=== PATIENT | female | born 1955 | race Caucasian/White ===

== ENCOUNTER 2020-06-13 08:44 | Outpatient (CLI) | payer MEDICARE, OTHER, SELFPAY ==
--- NOTE | 2020-06-13 09:01 | US_ITS ---
WS: [id number] ADDITIONAL VIEWS RIGHT BREAST RIGHT breast ultrasound, limited HISTORY: ABNORMAL MAMMOGRAM COMPARISON: 12/24/2006 and 05/11/2020 Compression views right CC and MLO projection. True ML also submitted. There are 2 adjacent soft tissue nodules with the largest measuring 5 mm in the anterior medial RIGHT breast, inferior to the nipple line on the lateral projection. Margins are smooth. Otherwise fibrogl andular densities throughout the RIGHT breast are stable. RIGHT breast ultrasound, limited. Ultrasound is directed to the inferior medial RIGHT breast. There is a hypoechoic nodule at 3:00, 1 c m from the nipple which measures 4 x 3 x 2 mm. May correspond to the mammographic abnormality. Only a single hypoechoic nodule is identified. There are adjacent minimally prominent ducts. US/US breast RT limited* [id number] IMPRESSION: BI-RADS: 3-Probably Benign FOLLOW-UP: 6 Month Follow-up Recommend 6 month RIGHT mammogram follow-up and ultrasound evaluation.
== END 2020-06-13 08:45 | disposition home or self-care (01) ==
PROVIDERS: PCP Family Medicine; Visit Provider Family Medicine
DX: R92.8 Other abnormal and inconclusive findings on diagnostic imaging of breast (principal); N63.15 Unspecified lump in the right breast, overlapping quadrants
CPT/HCPCS: 76642; 77065

== ENCOUNTER 2020-07-30 17:38 | Inpatient (IN) | payer MEDICARE, OTHER, SELFPAY ==
[2020-07-30 20:36] VITALS: BP 145/72; PULSE 68; RESP 24; O2SAT 99
[2020-07-30 21:00] VITALS: BP 140/78; PULSE 56; RESP 17; O2SAT 97
[2020-07-30 21:03] VITALS: BMI 21.7
[2020-07-30 22:00] VITALS: BP 127/64; PULSE 59; RESP 17; O2SAT 99
[2020-07-30 23:00] VITALS: BP 129/68; PULSE 57; RESP 17; O2SAT 97
[2020-07-30] MEDS: enoxaparin 40 mg/0.4 mL Syringe SUBCUT (23:12)
[2020-07-30] MEDS: sodium chloride 0.9% 1,000 ML 75 ML IV (23:14)
[2020-07-31] VITALS (24 sets, daily range): BP systolic 117–166; BP diastolic 58–90; PULSE 52–78; RESP 13–29; TEMP 36.3–36.7; O2SAT 90–99
[2020-07-31 00:10] LABS: Thyroid Stimulating Hormone 0.13 uIU/mL (0.27-4.20)
[2020-07-31 06:54] LABS: Hematocrit 40.8 % (37.0-47.0); Hemoglobin 13.5 g/dL (11.5-15.3); Lymphocytes # 0.7 10^3/uL (0.8-4.8); Lymphocytes % 15.6 %; Mean Corpuscular HGB Conc 33.1 g/dL (30.0-36.0); Mean Corpuscular Hemoglobin 30.1 pg (28.0-34.0); Mean Corpuscular Volume 91.1 fL (81-99); Mean Platelet Volume 10.5 fL (7.4-10.4); Monocytes # 0.1 10^3/uL (0.2-0.9); Neutrophils # 3.47 10^3/uL (1.8-7.7); Neutrophils % 80.9 %; Nucleated Red Blood Cells % 0 %; Platelet Count 280 10^3/cmm (130-400); Red Blood Count 4.48 10^6/uL (4.1-5.3); White Blood Count 4.3 10^3/uL (4.0-10.0)
[2020-07-31 07:24] LABS: Alanine Aminotransferase 23 U/L (0-33); Albumin Level 3.6 g/dL (3.5-5.2); Alkaline Phosphatase 44 IU/L (35-105); Anion Gap 18.7 (5-19); Aspartate Amino Transferase 30 U/L (0-32); Blood Urea Nitrogen 18 mg/dL (8-23); Calcium 8.8 mg/dL (8.5-10.5); Carbon Dioxide 23 mmol/L (22-29); Chloride 97 mmol/L (98-107); Glucose 153 mg/dL (65-115); Magnesium 2.2 mg/dL (1.7-2.3); Osmolality Calculated 280 mOsm/kg (285-295); Phosphorus 2.6 mg/dL (2.5-4.5); Potassium 3.7 mmol/L (3.5-5.1); Sodium 135 mmol/L (136-145); Total Bilirubin 0.3 mg/dL (0.15-1.2); Total Protein 7.6 g/dL (6.6-8.7)
--- NOTE | 2020-07-31 07:27 | PC.ADMIT ---
[facility]0 Admission Note: The patient,Zuri Navarro,65 y/o, was given written information regarding hospital policies, unit procedures and contact persons. Patient's smoking status: . Vital Signs - 8 hr 07/31/20 00:00 07/31/20 01:00 07/31/20 02:00 Pulse Rate 55 L 60 64 Respiratory Rate 16 19 H 18 Blood Pressure 133/69 118/63 141/73 Pulse Oximetry 99 96 98 07/31/20 03:00 07/31/20 04:00 07/31/20 05:00 Pulse Rate 52 L 58 L 66 Respiratory Rate 13 21 H 29 H Blood Pressure 166/77 156/90 137/74 Pulse Oximetry 99 96 93 Patient recieved via EMS direct admit from [facility]. A&Ox4 with skin clear dry and intact. VS WNL oxygen per NC at 2L. Lungs clear and diminished in the bases. Will continue to monitor and assist as needed following CPOC
--- NOTE | 2020-07-31 08:54 | XRR_ITS ---
PROCEDURE INFORMATION: Exam: XR Chest, 1 View Exam date and time: 07/31/2020 10:59 AM Age: 65 years old Clinical indication: Patient HX: Shortness of breath. Covid; Additional info: SOB TECHNIQUE: Imaging protocol: XR of the chest Views: 1 view. COMPARISON: No relevant prior studies available. FINDINGS: Lungs: There is ground-glass opacification in the right upper, middle and lower lobes of the lung. No focal lung consolidation. Pleural space: Unremarkable. No pleural effusion. No pneumothorax. Heart/Mediastinum: Unremarkable. No cardiomegaly. Bones/joints: Unremarkable. XR/XR chest 1V portable [id number] IMPRESSION: There is right-sided lung disease which would be consistent with the given history of Covid 19 pneumonia.
[2020-07-31 09:38] LABS: D Dimer 2.05 ug/mIFEU (0-0.59)
[2020-07-31 09:56] LABS: Free T4 Free Thyroxine 1.39 ng/dL (0.82-1.77); T3 Free 1.5 PG/ML (2.0-4.4)
[2020-07-31] MEDS: benzonatate 100 mg Capsule PO (11:55)
--- NOTE | 2020-07-31 12:11 | CTR_ITS ---
PROCEDURE INFORMATION: Exam: CT Angiography Chest With Contrast Exam date and time: 07/31/2020 12:12 PM Age: 65 years old Clinical indication: Fever and shortness of breath; Patient HX: Weakness, fever, SOB, elev d-dimer, covid+; Additional info: Covid 19, R/O pe TECHNIQUE: Imaging protocol: Computed tomographic angiography of the chest with intravenous contrast. 3D rendering (Not supervised by radiologist): MIP and/or 3D reconstructed images were created by the technologist. Radiation optimization: All CT scans at this facility use at least one of these dose optimization techniques: automated exposure control; mA and/or kV adjustment per patient size (includes targeted exams where dose is matched to clinical indication); or iterative reconstruction. Contrast material: OMNI 350; Contrast volume: 95 ml; Contrast route: INTRAVENOUS (IV); COMPARISON: CR XR chest 1V portable [id number] 07/31/2020 11:07 AM RADIATION DOSE METRICS: Total DLP (mGy-cm): 578.34 FINDINGS: Pulmonary arteries: Normal. No pulmonary emboli. Aorta: Unremarkable. No aortic aneurysm. No aortic dissection. Lungs: There is ground-glass opacification in the bilateral upper, right middle and right lower lobe of the lung. There is peripheral predominance. No dominant lung mass. Pleural space: Unremarkable. No pneumothorax. No pleural effusion. Heart: Unremarkable. No cardiomegaly. No pericardial effusion. Lymph nodes: Unremarkable. No enlarged lymph nodes. Bones/joints: Unremarkable. No acute fracture. Soft tissues: Unremarkable. CT/CT angio chest PE protcl [id number] IMPRESSION: There is no evidence for a pulmonary embolus. There is bilateral lung disease, right worse than left. Findings would be consistent with Covid-19 pneumonia. Radiation Dose CTDIVOL = (mGy): DLP = 578.34 (mGy-cm)
[2020-07-31] MEDS: sodium chloride 0.9% 1,000 ML 75 ML IV (13:02)
--- NOTE | 2020-07-31 13:14 | PM.HP ---
Providers/Chief Complaint Admitting Physician: Philip Powell MD Primary Care Provider: Neeraj Chavira Chief Complaint: COVID 19 History of Present Illness Zuri Navarro is a 65 year old female with a past medical history of COPD, quit smoking more than 20 years ago, vitamin D deficiency, hypertension, hyperlipidemia, who presents to [facility] due to complaints of fatigue, malaise, weakness, fevers, shortness of breath with exertion. Patient states that her symptoms started about a week ago, with cough, fevers, fatigue, malaise, shortness of breath with exertion. She tested positive for COVID-19 on , however her symptoms worsen, had a poor appetite, felt dehydrated, diarrhea. She presented to the ER in [place], was transferred to [facility] due to concerns for COVID-19 and dehydration. Currently patient was examined in the viral ICU, she looks ill a bit dehydrated, her oxygen saturations do drop to 88 when she speaks with me, she does feel short of breath with exertion, but currently on room air versus 2 L nasal cannula, she states that she is doing better, still has a poor appetite, no diarrhea Review of Systems Const: Reports: fever(s), chills, body aches, change in appetite, fatigue and malaise Eyes: Denies: change in vision or blurry vision ENMT: Reports: nasal congestion Resp: Reports: dyspnea and non-productive cough; Denies: productive cough or wheezing GI: Reports: diarrhea; Denies: abdominal pain, nausea, vomiting, hematemesis, constipation, hematochezia or melena : Denies: flank pain, dysuria or urinary frequency Musc: Denies: neck pain or back pain Skin/Breast: Denies: rash Neuro: Denies: headache(s), dizziness or vertigo Psych: Denies: anxiety or depression Endo: Denies: polyuria or polydipsia Medications/Allergies Allergies Allergy/AdvReac Type Severity Reaction Status Date / Time No Known Drug Allergies Allergy Unknown Verified 07/30/20 23:11 PFSH Acute PFSH: Medical History (Updated 07/31/20 @ 13:19 by Philip Powell MD) COPD (chronic obstructive pulmonary disease) HLD (hyperlipidemia) HTN (hypertension) with goal to be determined Vitamin D deficiency Surgical History (Updated 07/31/20 @ 13:18 by Philip Powell MD) H/O tubal ligation Family History (Updated 07/31/20 @ 13:18 by Philip Powell MD) Other Cancer Diabetes Hypertension Social History (Updated 07/31/20 @ 13:18 by Philip Powell MD) Smoking and tobacco status: former smoker Alcohol intake: never Substance/Drug Use: never Vitals/I&O/Wt Last Vital Signs Temp 97.3 F L 07/31/20 12:00 Pulse 70 07/31/20 12:00 Resp 22 H 07/31/20 12:00 BP 144/77 07/31/20 12:00 Pulse Ox 93 07/31/20 12:00 07/30/20 07/31/20 07/31/20 22:59 06:59 14:59 Intake Total 100 / 100 300 / 400 1360 / 1360 Balance 100 / 100 300 / 400 1360 / 1360 Weight last 48 hrs Weight 68.492 kg Physical Exam Const: COMMON NORMALS: no acute distress and patient oriented x3 GENERAL APPEARANCE: cooperative and comfortable HENMT: COMMON NORMALS: normocephalic HEAD & SCALP: normocephalic Eye: COMMON NORMALS: Equal, round and reactive pupils present, EOMs intact bilaterally and no papilledema GENERAL EYE: appearance normal, both eyes and all related structures PUPIL: Yes Equal, round and reactive pupils present DIRECT OPHTHALMOSCOPY: Yes no papilledema Neck/C-Spine: COMMON NORMALS: full ROM, no lymphadenopathy, no JVD and Thyroid normal THYROID: Thyroid normal Lymph: LYMPHATIC: no lymphadenopathy noted Resp: COMMON NORMALS: normal respiratory effort, No retractions, No use of accessory muscles and clear to auscultation bilaterally AUSCULTATION: clear to auscultation bilaterally OTHER: Looks short of breath on exam Cardio: COMMON NORMALS: no JVD, regular rate, regular rhythm, S1 normal heart sound present, S2 normal heart sound present, No gallops present (Cardio), No clicks present (Cardio) and No murmurs present (Cardio) RATE: regular rate RHYTHM: regular rhythm HEART SOUNDS: S1 normal heart sound present and S2 normal heart sound present GI: COMMON NORMALS: Normal to inspection, nondistended, normoactive bowel sounds present, Soft to palpation, non-tender and No hepatosplenomegaly present PALPATION: Yes Soft to palpation and Yes No hepatosplenomegaly present Extremity: COMMON NORMALS: normal to inspection, full ROM and no pedal edema Neuro: COMMON NORMALS: patient oriented x3, CN's II-XII intact bilaterally, moves all extremities and no focal motor deficits Psych: COMMON NORMALS: mental status grossly normal, Normal thought process present and cooperative THOUGHT PROCESS: Normal thought process present Data : 07/31/20 05:00 07/31/20 05:00 Micro: Microbiology 07/30/20 23:00 Blood Culture - Preliminary Blood SPECIMEN COLLECTED 07/30/20 23:00 Blood Culture - Preliminary Blood SPECIMEN COLLECTED A&P Assessment and plan (1) Acute on chronic respiratory failure with hypoxia: -Secondary to COVID-19, viral pneumonitis -Currently requiring 2 L nasal cannula, feels short of breath -Risk factors include COPD, previous history of smoking Plan: -Continue oxygen therapy -Advair, Spiriva, albuterol -Normal saline at 75 cc an hour, hold for now -We will order CT angiogram of the chest -As she is short of breath, requiring 2 L nasal cannula we will start her on Decadron and remdesvir -No need for antibiotics at this point will review CT angiogram -Lovenox for DVT prophylaxis -Full code Status: Acute (2) COPD (chronic obstructive pulmonary disease): Status: Acute (3) HLD (hyperlipidemia): Status: Acute (4) HTN (hypertension) with goal to be determined: Status: Acute (5) Vitamin D deficiency: Status: Acute (6) COVID-19: Status: Acute (7) Viral pneumonitis: Status: Acute (8) Low TSH level: -We will check free T4, free T3 Status: Acute Attestations Medical Necessity Statement*: Patient course hospitalization, inpatient, greater than 2 midnights, for acute respiratory failure secondary to COVID-19 Coding Level of Care Code Acute Mine Administrator Supervisor for Chg Fwd Diagnoses Acute on chronic respiratory failure with hypoxia J96.21 COPD (chronic obstructive pulmonary disease) J44.9 HLD (hyperlipidemia) E78.5 HTN (hypertension) with goal to be determined I10 Vitamin D deficiency E55.9 COVID-19 U07.1 Viral pneumonitis J12.9 Low TSH level R79.89
[2020-07-31 14:24] LABS: NT Pro B Type Natriuretic Pept 133 pg/mL (0-125); Procalcitonin 0.15 ng/mL (0-0.5)
[2020-07-31 14:34] LABS: C Reactive Protein 230.6 mg/L (0.0-4.9); Lactate Dehydrogenase 303 U/L (135-214)
[2020-07-31 14:55] LABS: Ferritin 2456 ng/mL (15-150)
[2020-07-31] MEDS: pantoprazole DR 40 mg Tablet PO (15:02)
[2020-07-31] MEDS: dexamethasone 10 mg/mL INJ 6 MG IVP (15:02)
[2020-07-31] MEDS: iohexol 350 mg/mL 100 mL Btl IV (15:05)
[2020-07-31] MEDS: enoxaparin 40 mg/0.4 mL Syringe SUBCUT (17:40)
[2020-08-01] VITALS (28 sets, daily range): BP systolic 123–167; BP diastolic 44–107; PULSE 58–74; RESP 15–32; TEMP 36.1–37.1; O2SAT 89–99
[2020-08-01 05:35] LABS: Alanine Aminotransferase 38 U/L (0-33); Alkaline Phosphatase 43 IU/L (35-105); Anion Gap 15.8 (5-19); Aspartate Amino Transferase 36 U/L (0-32); Blood Urea Nitrogen 14 mg/dL (8-23); Carbon Dioxide 20 mmol/L (22-29); Chloride 105 mmol/L (98-107); Globulin 3.1 g/dL (1.3-4.6); Glomerular Filtration Rate 100.3 mL/min (90-130); Glucose 161 mg/dL (65-115); Magnesium 1.9 mg/dL (1.7-2.3); Osmolality Calculated 284 mOsm/kg (285-295); Phosphorus 2.2 mg/dL (2.5-4.5); Potassium 3.8 mmol/L (3.5-5.1); Sodium 137 mmol/L (136-145); Total Bilirubin 0.2 mg/dL (0.15-1.2); Total Protein 6.1 g/dL (6.6-8.7)
--- NOTE | 2020-08-01 06:00 | ECG_ITS ---
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 Measurements Intervals [place] Rate: 69 P: 43 SD: 155 QRS: 6 QRSD: 93 T: 17 QT: 403 QTc: 434 Interpretive Statements SINUS RHYTHM No previous ECG available for comparison Electronically Signed On 08-02-2020 14:58:48 CDT by Kathy Huffman M.D. [id number]
[2020-08-01] MEDS: benzonatate 100 mg Capsule PO ×2 (09:49→15:57)
[2020-08-01] MEDS: acetaminophen 325 mg Tablet 650 MG PO ×2 (09:49→15:56)
[2020-08-01] MEDS: pantoprazole DR 40 mg Tablet PO (09:50)
[2020-08-01] MEDS: sodium chloride 0.9% 1,000 ML 50 ML IV ×2 (10:30→22:10)
[2020-08-01] MEDS: dexamethasone 10 mg/mL INJ 6 MG IVP (12:09)
--- NOTE | 2020-08-01 12:43 | PC.RESP ---
Pulmonary Rehab information sent to patient.
--- NOTE | 2020-08-01 14:11 | PC.NURSE ---
PATIENT IS ALERT AND ORIENTATED BUT SORE ON MOVEMENT AND SOB WITH MINIMAL ACTIVITY BUT KEEPS HER SATS OVER 92 ON ROOM AIR. POOR APPETITE SHE HAS ONLY EATEN ABOUT 50 % OF HER TRAYS. SHE TOOK A BATH THIS AM , HER SHEETS WERE STRAIGHTENED BUT NOT CHANGED AT THE TIME THERE WAS NOT A FULL SET OF SHEETS AVAILABLE.
--- NOTE | 2020-08-01 14:32 | P.PN_ITS ---
Subjective Subjective: Interval history: In the last 24-hour her oxygen requirement is going down. She was pleasant in the morning and had denied any chest pain, shortness of breath, nausea, vomiting. Though she is complaining of some intermittent on and off nonproductive cough. She is tolerating the diet well. Vitals and labs have been reviewed. Medications: Reviewed: Yes Vitals/I&O/Wt Last Vital Signs Temp 97.4 F L 08/01/20 12:05 Pulse 68 08/01/20 13:00 Resp 26 H 08/01/20 13:00 BP 128/64 08/01/20 13:00 Pulse Ox 94 08/01/20 13:00 07/31/20 08/01/20 08/01/20 22:59 06:59 14:59 Intake Total 560 / 2177.5 300 / 2477.5 1492.5 / 1492.5 Balance 560 / 2177.5 300 / 2477.5 1492.5 / 1492.5 Weight last 48 hrs Weight 68.492 kg Physical Exam Const: COMMON NORMALS: patient oriented x3 HENMT: COMMON NORMALS: normocephalic, atraumatic, hearing grossly normal bilaterally and external ears normal HEAD & SCALP: normocephalic and atraumatic EXTERNAL EAR: Yes external ears normal Eye: COMMON NORMALS: no scleral icterus GENERAL EYE: appearance normal, both eyes and all related structures Chest: COMMONS NORMALS: normal inspection of the chest and normal palpation of entire chest wall CHEST: Yes Symmetrical chest wall rise Resp: COMMON NORMALS: normal respiratory effort, No retractions, No use of accessory muscles and clear to auscultation bilaterally EFFORT & INSPECTION: Yes symmetric chest movement AUSCULTATION: clear to auscultation bilaterally Cardio: COMMON NORMALS: regular rate, regular rhythm, S1 normal heart sound present, S2 normal heart sound present, No gallops present (Cardio), No murmurs present (Cardio), No rub (Cardio) and Peripheral pulses 2+ throughout RATE: regular rate RHYTHM: regular rhythm HEART SOUNDS: S1 normal heart sound present and S2 normal heart sound present PERIPHERAL PULSES: Peripheral pulses 2+ throughout GI: COMMON NORMALS: Normal to inspection, nondistended, normoactive bowel sounds present, Soft to palpation, non-tender, No hepatosplenomegaly present and no masses AUSCULTATION: Yes normoactive bowel sounds PALPATION: Yes Soft to palpation and Yes No hepatosplenomegaly present RECTAL EXAM: deferred Extremity: COMMON NORMALS: no clubbing, cyanosis or edema and no pedal edema Neuro: COMMON NORMALS: patient oriented x3 Data : 08/01/20 11:00 08/01/20 04:20 Micro: Microbiology 07/30/20 23:00 Blood Culture - Preliminary Blood NEGATIVE TO DATE 07/30/20 23:00 Blood Culture - Preliminary Blood NEGATIVE TO DATE 07/30/20 23:10 MRSA Culture - Final Nose A&P Assessment and plan (1) Acute on chronic respiratory failure with hypoxia: -Secondary to COVID-19, viral pneumonitis -Currently requiring 2 L nasal cannula, feels short of breath -Risk factors include COPD, previous history of smoking Plan: -Continue oxygen therapy -Advair, Spiriva, albuterol -Normal saline at 75 cc an hour, hold for now -We will order CT angiogram of the chest -As she is short of breath, requiring 2 L nasal cannula we will start her on Decadron and remdesvir -No need for antibiotics at this point will review CT angiogram -Lovenox for DVT prophylaxis -Full code Status: Acute (2) COPD (chronic obstructive pulmonary disease): Status: Acute (3) HLD (hyperlipidemia): Status: Acute (4) HTN (hypertension) with goal to be determined: Status: Acute (5) Vitamin D deficiency: Status: Acute (6) COVID-19: Status: Acute (7) Viral pneumonitis: Status: Acute (8) Low TSH level: -We will check free T4, free T3 Status: Acute Attestations Medical Necessity Statement*: Patient needs to stay in the hospital for management of COVID pneumonia. Coding Level of Care Code Acute Parts Salesperson for Chg Fwd Exam Comprehensive Diagnoses Acute on chronic respiratory failure with hypoxia J96.21 COPD (chronic obstructive pulmonary disease) J44.9 HLD (hyperlipidemia) E78.5 HTN (hypertension) with goal to be determined I10 Vitamin D deficiency E55.9 COVID-19 U07.1 Viral pneumonitis J12.9 Low TSH level R79.89
[2020-08-01 14:34] LABS: Basophils % 0.1 %; Hematocrit 33.4 % (37.0-47.0); Lymphocytes # 0.8 10^3/uL (0.8-4.8); Lymphocytes % 9.1 %; Mean Corpuscular HGB Conc 32.9 g/dL (30.0-36.0); Mean Corpuscular Hemoglobin 30.5 pg (28.0-34.0); Mean Corpuscular Volume 92.5 fL (81-99); Mean Platelet Volume 11.3 fL (7.4-10.4); Monocytes # 0.8 10^3/uL (0.2-0.9); Monocytes % 8.1 %; Neutrophils # 7.54 10^3/uL (1.8-7.7); Neutrophils % 81.9 %; Nucleated Red Blood Cells % 0 %; Platelet Count 250 10^3/cmm (130-400); Red Blood Count 3.61 10^6/uL (4.1-5.3); Red Cell Distribution Width 12.3 % (12.1-15.1); White Blood Count 9.2 10^3/uL (4.0-10.0)
[2020-08-01] MEDS: enoxaparin 40 mg/0.4 mL Syringe SUBCUT (15:23)
--- NOTE | 2020-08-01 18:45 | PC.NURSE ---
Received report on patient from Rashmi Arriaza RN. Assumed care at this time.
[2020-08-02] VITALS (15 sets, daily range): BP systolic 149–183; BP diastolic 68–89; PULSE 57–82; RESP 16–24; TEMP 36.3–37.2; O2SAT 86–95
[2020-08-02] MEDS: benzonatate 100 mg Capsule PO ×2 (04:36→10:38)
--- NOTE | 2020-08-02 06:00 | ECG_ITS ---
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 Measurements Intervals [place] Rate: 70 P: 48 ME: 145 QRS: 13 QRSD: 89 T: 17 QT: 398 QTc: 430 Interpretive Statements SINUS RHYTHM Compared to ECG 08/01/2020 09:35:40 No significant changes Electronically Signed On 08-02-2020 14:57:16 CDT by Kathy Huffman M.D. [id number]
[2020-08-02 06:24] LABS: Hemoglobin 11.4 g/dL (11.5-15.3); Lymphocytes # 0.8 10^3/uL (0.8-4.8); Lymphocytes % 10.5 %; Mean Corpuscular HGB Conc 33.5 g/dL (30.0-36.0); Mean Corpuscular Hemoglobin 29.9 pg (28.0-34.0); Mean Corpuscular Volume 89.2 fL (81-99); Mean Platelet Volume 11.3 fL (7.4-10.4); Monocytes # 0.5 10^3/uL (0.2-0.9); Monocytes % 6.4 %; Neutrophils % 82.4 %; Nucleated Red Blood Cells % 0 %; Platelet Count 282 10^3/cmm (130-400); Red Blood Count 3.81 10^6/uL (4.1-5.3); Red Cell Distribution Width 12.2 % (12.1-15.1); White Blood Count 7.2 10^3/uL (4.0-10.0)
[2020-08-02 06:42] LABS: Alanine Aminotransferase 34 U/L (0-33); Albumin Level 3.2 g/dL (3.5-5.2); Alkaline Phosphatase 46 IU/L (35-105); Anion Gap 15.8 (5-19); Aspartate Amino Transferase 20 U/L (0-32); Blood Urea Nitrogen 17 mg/dL (8-23); Carbon Dioxide 23 mmol/L (22-29); Chloride 105 mmol/L (98-107); Glomerular Filtration Rate 123.8 mL/min (90-130); Glucose 150 mg/dL (65-115); Osmolality Calculated 289 mOsm/kg (285-295); Phosphorus 2.5 mg/dL (2.5-4.5); Potassium 3.8 mmol/L (3.5-5.1); Sodium 140 mmol/L (136-145); Total Bilirubin 0.2 mg/dL (0.15-1.2); Total Protein 6.2 g/dL (6.6-8.7)
[2020-08-02] MEDS: pantoprazole DR 40 mg Tablet PO (08:19)
[2020-08-02] MEDS: lisinopril 20 mg Tablet PO (09:02)
--- NOTE | 2020-08-02 09:42 | PM.DCS ---
Discharge Providers Date of Admission: 07/30/20 17:38 Date of Discharge: August 02, 2020 Attending Provider at Admission: Philip Powell MD Attending Provider at Discharge: Philip Powell MD Primary Care Provider: Neeraj Chavira Diagnoses at Discharge Discharge Diagnosis (1) Acute on chronic respiratory failure with hypoxia: Status: Acute (2) COPD (chronic obstructive pulmonary disease): Status: Chronic (3) HLD (hyperlipidemia): Status: Chronic (4) HTN (hypertension) with goal to be determined: Status: Chronic (5) Vitamin D deficiency: Status: Acute (6) COVID-19: Status: Acute (7) Viral pneumonitis: Status: Acute (8) Low TSH level: Status: Acute Reason for Visit Reason for Visit: COVID 19 Hospital Course Discharge Summary: 65 year old female with a past medical history of COPD, quit smoking more than 20 years ago, vitamin D deficiency, hypertension, hyperlipidemia, came in with c/o fatigue, malaise, weakness, fevers, shortness of breath with exertion. Patient stated that her symptoms started about a week ago, with cough, fevers, fatigue, malaise, shortness of breath with exertion. She was managed for COVID PNA. She completed the course of Remdesivir as well course of decadron.She resonded well to the medical management. She was discharged in stable condition. Physical Exam Const: COMMON NORMALS: patient oriented x3 HENMT: COMMON NORMALS: normocephalic, atraumatic, hearing grossly normal bilaterally and external ears normal HEAD & SCALP: normocephalic and atraumatic EXTERNAL EAR: Yes external ears normal Eye: COMMON NORMALS: no scleral icterus GENERAL EYE: appearance normal, both eyes and all related structures Chest: COMMONS NORMALS: normal inspection of the chest and normal palpation of entire chest wall CHEST: Yes Symmetrical chest wall rise Resp: COMMON NORMALS: normal respiratory effort, No retractions, No use of accessory muscles and clear to auscultation bilaterally EFFORT & INSPECTION: Yes symmetric chest movement AUSCULTATION: clear to auscultation bilaterally Cardio: COMMON NORMALS: regular rate, regular rhythm, S1 normal heart sound present, S2 normal heart sound present, No gallops present (Cardio), No murmurs present (Cardio), No rub (Cardio) and Peripheral pulses 2+ throughout RATE: regular rate RHYTHM: regular rhythm HEART SOUNDS: S1 normal heart sound present and S2 normal heart sound present PERIPHERAL PULSES: Peripheral pulses 2+ throughout GI: COMMON NORMALS: Normal to inspection, nondistended, normoactive bowel sounds present, Soft to palpation, non-tender, No hepatosplenomegaly present and no masses AUSCULTATION: Yes normoactive bowel sounds PALPATION: Yes Soft to palpation and Yes No hepatosplenomegaly present RECTAL EXAM: deferred Extremity: COMMON NORMALS: no clubbing, cyanosis or edema and no pedal edema Neuro: COMMON NORMALS: patient oriented x3 Discharge Data Data Completed and Pending: Completed Studies During Hospitalization Category Date Time Status CT angio chest PE protcl [id number] Stat Cat Scan 07/31/20 12:11 Completed XR chest 1V annabel ble [id number] Routine Exams 07/31/20 08:54 Completed Pending at discharge Category Date Time Status Blood Culture Rou zoltan Lab 07/30/20 23:00 Results Viral Respiratory ,Rapid Cultur Stat Lab 07/31/20 21:15 Received Labs from last 24 hours 08/02/20 08/02/20 08/01/20 04:20 04:20 11:00 WBC 7.2 9.2 RBC 3.81 L 3.61 L Hgb 11.4 L 11.0 L Hct 34.0 L 33.4 L MCV 89.2 92.5 MCH 29.9 30.5 MCHC 33.5 32.9 RDW 12.2 12.3 Plt Count 282 250 MPV 11.3 H 11.3 H Neut % (Auto) 82.4 81.9 Lymph % (Auto) 10.5 9.1 [place] % (Auto) 6.4 8.1 Eos % (Auto) 0.0 0.0 Baso % (Auto) 0.0 0.1 Neut # (Auto) 5.90 7.54 Lymph # (Auto) 0.8 0.8 [place] # (Auto) 0.5 0.8 Eos # (Auto) 0.0 0.0 Baso # (Auto) 0.0 0.0 Nucleated RBC % (a uto) 0 0 Nucleated RBCs # 0.0 0.0 Sodium 140 Potassium 3.8 Chloride 105 Carbon Dioxide 23 Anion Gap 15.8 BUN 17 Creatinine 0.5 GFR Calculation 123.8 Glucose 150 H Calculated Osmolal ity 289 Calcium 8.0 L Phosphorus 2.5 Magnesium 2.0 Total Bilirubin 0.2 AST 20 ALT 34 H Alkaline Phosphata se 46 Total Protein 6.2 L Albumin 3.2 L Globulin 3.0 Vitals: Last Vital Signs Temp 97.4 F L 08/02/20 08:00 Pulse 71 08/02/20 09:32 Resp 19 H 08/02/20 09:00 BP 149/79 08/02/20 09:00 Pulse Ox 93 08/02/20 09:32 Discharge Plan Discharge Patient Disposition: Home Condition: Stable Prescriptions: New benzonatate 100 mg Capsule 100 mg PO TID PRN (Reason: Cough) Qty: 30 RF: 0 Ventolin HFA 90 mcg/actuation Hfa Aerosol Inhaler 2 puff inhalation Q4H PRN (Reason: Shortness Of Breath) 30 Days RF: 0 lisinopril 20 mg Tablet 20 mg PO DAILY 30 Days RF: 0 pantoprazole 40 mg Tablet,Delayed Release (Dr/Ec) 40 mg PO DAILY 30 Days RF: 0 Medrol (Satinder) 4 mg tablets,dose pack See Rx Instructions .ROUTE .COMPLEX Qty: 21 RF: 0 Advair Diskus 100-50 mcg/dose Blister With Device 1 puff inhalation BID 30 Days RF: 0 cholecalciferol (vitamin D3) 25 mcg (1,000 unit) capsule 25 mcg PO DAILY Qty: 30 RF: 0 benzonatate 100 mg capsule 100 mg PO BID PRN (Reason: cough) Qty: 30 RF: 0 Discharge Orders: Discharge Order (Routine); Ordered 08/02/20 Ordered By: Gerardo Osorio Other Ambulatory Orders: DME: Oxygen (Order) Location: None Selected Ordered By: Gerardo Osorio [facility] [facility] Discharge Diet: Low Salt Discharge Activity: Resume usual activity Discharge Date/Time: 08/02/20 13:34 Discharge Attestations Time Spent in Discharge Care*: greater than 30 min Specific Discharge Activities: Specific discharge activities: educating patient, educating and/or supporting family/caregiver, discussing with transplant case manager/social workers/dc planners, documenting/other paperwork and evaluating patient/reviewing data Status at Discharge: Cognitive status at discharge: cognitively intact, Functional status at discharge: independent ambulation Quality Metrics Clinical Quality Measures During this hospital stay, did patient experience: None Coding Level of Care Code Acute Feeder Associate for Derik Fwrolando Diagnoses Acute on chronic respiratory failure with hypoxia J96.21 COPD (chronic obstructive pulmonary disease) J44.9 HLD (hyperlipidemia) E78.5 HTN (hypertension) with goal to be determined I10 Vitamin D deficiency E55.9 COVID-19 U07.1 Viral pneumonitis J12.9 Low TSH level R79.89
--- NOTE | 2020-08-02 11:45 | PC.SOCIAL ---
IMM Explained page 2 of IMM to patient by phone as she is in the VICU for being COVID positive. She verbalizes understanding. Initialed, dated, and timed and copy provided to patient via nurse. Original sent to Medical Records to be scanned into patient's EHR.
--- NOTE | 2020-08-04 12:22 | PC.SOCIAL ---
Called patient post discharge to see how she is feeling. Patient indicates she is very weak and dizzy when ambulating to bathroom. She is not getting up much other than that due to weakness. She has called Dr Chavira office to request a walker with a seat. This would help her continue to ambulate and gain strength but allow for a rest in between if needed. We discussed this seems to be needed for her safety and will allow her to gain strength as she recovers. She indicates feeling at a stand still on recovery. She does not have an appetite. We discussed drinking Ensure a few times a day to help get nutrients needed as she is recovering. She has been afebrile. She does continue to have cough. We discussed rinsing her mouth after inhaler use. She verbalized understanding and will start doing this. We discussed doing deep breathing exercises throughout the day where she breathes in through nose and out slowly through mouth. We discussed this keep her lungs active and helps expand airways to prevent further weakness and shortness of breath and prevent further respiratory infections. Patient agreed to do these exercises. She is hoping to show improvement soon. We discussed handwashing and social distancing. She does have someone that can last picker groceries etc for her if needed while she is still symptomatic and needs to be quarantined. She did not have a visit scheduled with Dr Chavira yet and we discussed it would be best if she get a virtual visit this week or early next week. She verbalized understanding. She is interested in the Plasma donation information therefore this nurse will mail it out to her. This nurse called Dr Chavira office and he does have a message request for the walker with seat. Scheduling Specialist mentioned he would address after seeing patients today and will probably be ordered tomorrow. Patient was told if any concerns they will call her. Patient felt her care was good here and had no concerns.
== END 2020-08-02 13:34 | disposition home or self-care (01) | DRG 177 ==
PROVIDERS: Admitting Provider Family Medicine; PCP Family Medicine; Visit Provider Family Medicine
DX: U07.1 COVID-19 (principal); J12.89 Other viral pneumonia; J96.21 Acute and chronic respiratory failure with hypoxia; J44.0 Chronic obstructive pulmonary disease with (acute) lower respiratory infection; Z87.891 Personal history of nicotine dependence; E55.9 Vitamin D deficiency, unspecified; I10 Essential (primary) hypertension; E78.5 Hyperlipidemia, unspecified; E86.0 Dehydration; R79.89 Other specified abnormal findings of blood chemistry
CPT/HCPCS: 12345; 36415; 71045; 71275; 80053; 82728; 83615; 83735; 83880; 84100; 84145; 84439; 84443; 84481; 85025; 85378; 86140; 87040; 87641; 93005; 96372; 96375; J1100; J1650; J7030; Q9967

== ENCOUNTER 2020-12-21 10:13 | Outpatient (CLI) | payer MEDICARE, OTHER, SELFPAY ==
--- NOTE | 2020-12-21 10:23 | MM_ITS ---
WS: [id number] DIAGNOSTIC BILATERAL DIGITAL MAMMOGRAM WITH CAD RIGHT breast ultrasound, limited HISTORY: 6 MO F/U ABNORMAL MAMMOGRAM RT NODULES COMPARISON: 06/13/2020, 05/11/2020 and 12/24/2006 TECHNIQUE: Bilateral craniocaudad, mediolateral oblique, and mediolateral views are submitted. Spot c ompression RIGHT MLO and cc. Computer aided detection utilized. Breast composition: The breasts are heterogeneously dense, which may obscure small masses. No persist ent nodules are identified. No architectural distortion. Dense fibroglandular pattern is similar to p rior studies. RIGHT breast ultrasound, limited. RIGHT breast ultrasound is directed to the 3:00 axis, 1 cm from the nipple as indicated on a prior ul trasound from 06/13/2020. Again noted is a hypoechoic mass at 3:00, 1 cm from the nipple measuring 3 x 3 x 2 mm. Mass has not increased in size but appears slightly taller than wide. At this time I belie ve we should proceed with biopsy. MM/[place] [id number] IMPRESSION: BI-RADS: 4-Suspicious Finding-Biopsy Should Be Considered FOLLOW UP: Biopsy Recommended Ultrasound-guided biopsy recommended of the RIGHT breast mass at 3:00. Although this mass has not significantly increased in size it appears slightly taller t [place] wide today. Instead of continuing short-term follow-up biopsy is recommende d to exclude malignancy.
== END 2020-12-21 10:14 | disposition home or self-care (01) ==
LOC: RADSHAW 10:16
PROVIDERS: PCP Family Medicine; Visit Provider Family Medicine
DX: R92.8 Other abnormal and inconclusive findings on diagnostic imaging of breast (principal); N63.15 Unspecified lump in the right breast, overlapping quadrants
CPT/HCPCS: 76642; 77065

== ENCOUNTER 2021-01-16 12:32 | Outpatient (CLI) | payer MEDICARE, OTHER, SELFPAY ==
--- NOTE | 2021-01-16 13:00 | US_ITS ---
WS: [id number] ULTRASOUND-GUIDED RIGHT BREAST BIOPSY HISTORY: R92.8 - Other abnormal and inconclusive findings on diagnostic imaging of breast COMPARISON: 12/21/2020 and 06/13/2020 Procedure, risks and complications are explained to the patient. Medications are reviewed. Consent is obtained. The mass in the RIGHT breast is localized with ultrasound. Mass localized to 3:00, 1 cm from the nipp le. Skin is cleansed with ChloraPrep and anesthetized with 1% buffered lidocaine. Small dermatome is made. Under sterile conditions mass is biopsied with a 14-gauge Achieve needle. Multiple core biopsie s are performed. Material placed in formalin and sent to pathology for review. No complications encou ntered. Breast tissue marker (Bard ultrasound enhanced ribbon): Single. Patient left the radiology suite with no complications. Patient is instructed to return to [facility]. US/[place] [id number] IMPRESSION: 1. Uncomplicated core needle biopsy RIGHT breast mass at 3:00. PATHOLOGY: Benign fibrous cystic changes with sclerosing adenosis. No malignanc y. RECOMMENDATION: Return to annual screening mammography.
== END 2021-01-16 12:33 | disposition home or self-care (01) ==
LOC: RAD 12:35
PROVIDERS: PCP Family Medicine; Visit Provider Family Medicine
DX: N63.15 Unspecified lump in the right breast, overlapping quadrants (principal); R92.8 Other abnormal and inconclusive findings on diagnostic imaging of breast; N60.21 Fibroadenosis of right breast
CPT/HCPCS: 19083; 88305

== ENCOUNTER 2022-01-29 09:01 | Outpatient (CLI) | payer MEDICARE, OTHER, SELFPAY ==
--- NOTE | 2022-01-29 09:15 | MM_ITS ---
WS: [id number] Bilateral screening 3D tomosynthesis digital mammogram, 01/29/2022 Clinical Data: Z12.39 - Encounter for other screening for malignant neoplasm of breast Comparison: 12/21/2020, 06/13/2020, 05/11/2020, 12/24/2006. Findings: The breast parenchymal pattern shows heterogeneous density No spiculated masses or clustered calcific ations are seen. There are no secondary signs of carcinoma. MM/[place] [id number] Impression: 1. Negative bilateral mammogram unchanged. 2. Recommend annual screening mammograms. BIRADS: 1-Negative FOLLOW UP: 1 Year Follow-up The CAD material checker was used.
== END 2022-01-29 09:02 | disposition home or self-care (01) ==
PROVIDERS: PCP Family Medicine; Visit Provider Surgery
DX: Z12.31 Encounter for screening mammogram for malignant neoplasm of breast (principal)
CPT/HCPCS: 77063; 77067

== ENCOUNTER → 2022-04-19 10:48 | Outpatient (BNVA) | payer MEDICARE, OTHER, SELFPAY | PROVIDERS: PCP Family Medicine; Referring Provider Family Medicine; Visit Provider Anesthesiology Pain Medicine | DX: G89.29 Other chronic pain (principal); M47.816 Spondylosis without myelopathy or radiculopathy, lumbar region; M79.604 Pain in right leg; M79.605 Pain in left leg; Z87.891 Personal history of nicotine dependence | CPT/HCPCS: 99204 ==

== ENCOUNTER 2022-05-16 10:25 | Outpatient (RCR) | payer MEDICARE, OTHER, SELFPAY | END 2022-05-17 23:59 | disposition home or self-care (01) | LOC: SPT 10:25 | PROVIDERS: PCP Family Medicine; Referring Provider Anesthesiology Pain Medicine; Visit Provider Anesthesiology Pain Medicine | DX: G89.29 Other chronic pain (principal); M54.50 Low back pain, unspecified | CPT/HCPCS: 97161 ==

== ENCOUNTER 2022-05-18 06:00 | Outpatient (RCR) | payer MEDICARE, OTHER, SELFPAY | END 2022-06-17 23:59 | disposition home or self-care (01) | LOC: SPT 06:00 | PROVIDERS: PCP Family Medicine; Referring Provider Anesthesiology Pain Medicine; Visit Provider Anesthesiology Pain Medicine | DX: M54.50 Low back pain, unspecified (principal); G89.29 Other chronic pain | CPT/HCPCS: 97032; 97110 ==

== ENCOUNTER → 2022-06-14 10:18 | Outpatient (BNVA) | payer MEDICARE, OTHER, SELFPAY | PROVIDERS: PCP Family Medicine; Visit Provider Anesthesiology Pain Medicine | DX: Z87.891 Personal history of nicotine dependence (principal); M47.816 Spondylosis without myelopathy or radiculopathy, lumbar region | CPT/HCPCS: 99214 ==

== ENCOUNTER → 2022-07-09 14:05 | Outpatient (BNVA) | payer MEDICARE, OTHER, SELFPAY | PROVIDERS: PCP Family Medicine; Visit Provider Anesthesiology Pain Medicine | DX: Z87.891 Personal history of nicotine dependence (principal); M47.816 Spondylosis without myelopathy or radiculopathy, lumbar region | CPT/HCPCS: 64493; 64494; 64495; J3490 ==

== ENCOUNTER → 2022-07-24 13:23 | Outpatient (BNVA) | payer MEDICARE, OTHER, SELFPAY | PROVIDERS: PCP Family Medicine; Visit Provider Anesthesiology Pain Medicine | DX: M47.816 Spondylosis without myelopathy or radiculopathy, lumbar region (principal); Z87.891 Personal history of nicotine dependence | CPT/HCPCS: 64493; 64494; 64495; J3490 ==

== ENCOUNTER → 2022-08-08 09:53 | Outpatient (BNVA) | payer MEDICARE, OTHER, SELFPAY | PROVIDERS: PCP Family Medicine; Visit Provider Anesthesiology Pain Medicine | DX: M47.816 Spondylosis without myelopathy or radiculopathy, lumbar region (principal); M79.604 Pain in right leg; M79.605 Pain in left leg; Z87.891 Personal history of nicotine dependence | CPT/HCPCS: 99214 ==

== ENCOUNTER 2023-02-07 07:57 | Outpatient (CLI) | payer MEDICARE, OTHER, SELFPAY ==
--- NOTE | 2023-02-07 08:24 | MM_ITS ---
WS: [id number] BILATERAL SCREENING DIGITAL TOMOSYNTHESIS MAMMOGRAM WITH CAD HISTORY: SCREEN COMPARISON: 01/29/2022, 12/21/2020, 05/11/2020 Bilateral CC and MLO views with tomosynthesis and synthetic mammography submitted. Computer aided det ection analyzed. Breast composition: The breasts are heterogeneously dense, which may obscure small masses. No suspici ous masses, microcalcifications or architectural distortion. Biopsy clip anterior RIGHT breast. MM/[place] [id number] IMPRESSION: BI-RADS: 2-Benign FOLLOW UP: 1 Year Follow-up
== END 2023-02-07 07:58 | disposition home or self-care (01) ==
PROVIDERS: PCP Family Medicine; Visit Provider Family Medicine
DX: Z12.31 Encounter for screening mammogram for malignant neoplasm of breast (principal)
CPT/HCPCS: 77063; 77067

== ENCOUNTER → 2023-07-04 09:55 | Outpatient (BNVA) | payer MEDICARE, OTHER, SELFPAY | PROVIDERS: PCP Family Medicine; Referring Provider Registered Nurse; Visit Provider Orthopaedic Surgery | DX: M48.02 Spinal stenosis, cervical region (principal) | CPT/HCPCS: 72050; 99204 ==

== ENCOUNTER → 2023-07-23 08:38 | Outpatient (BNVA) | payer MEDICARE, OTHER, SELFPAY | PROVIDERS: PCP Family Medicine; Visit Provider Anesthesiology Pain Medicine | DX: M47.816 Spondylosis without myelopathy or radiculopathy, lumbar region | CPT/HCPCS: 99214 ==

== ENCOUNTER → 2023-08-15 13:58 | Outpatient (BNVA) | payer MEDICARE, OTHER, SELFPAY | PROVIDERS: PCP Family Medicine; Visit Provider Anesthesiology Pain Medicine | DX: M47.816 Spondylosis without myelopathy or radiculopathy, lumbar region (principal) | CPT/HCPCS: 64493; 64494; 64495; J3490 ==

== ENCOUNTER → 2023-08-27 08:51 | Outpatient (BNVA) | payer MEDICARE, OTHER, SELFPAY | PROVIDERS: PCP Family Medicine; Visit Provider Anesthesiology Pain Medicine | DX: M47.816 Spondylosis without myelopathy or radiculopathy, lumbar region | CPT/HCPCS: 99214 ==

== ENCOUNTER → 2023-09-10 13:29 | Outpatient (BNVA) | payer MEDICARE, OTHER, SELFPAY | PROVIDERS: PCP Family Medicine; Visit Provider Anesthesiology Pain Medicine | DX: M47.816 Spondylosis without myelopathy or radiculopathy, lumbar region (principal); M54.16 Radiculopathy, lumbar region | CPT/HCPCS: 64635; 64636; J1030 ==

== ENCOUNTER → 2023-09-24 10:45 | Outpatient (BNVA) | payer MEDICARE, OTHER, SELFPAY | PROVIDERS: PCP Family Medicine; Visit Provider Anesthesiology Pain Medicine | DX: M47.816 Spondylosis without myelopathy or radiculopathy, lumbar region | CPT/HCPCS: 99214 ==

== ENCOUNTER → 2023-10-16 13:53 | Outpatient (BNVA) | payer MEDICARE, OTHER, SELFPAY | PROVIDERS: PCP Family Medicine; Visit Provider Anesthesiology Pain Medicine | DX: M47.816 Spondylosis without myelopathy or radiculopathy, lumbar region (principal) | CPT/HCPCS: 64493; 64494; 64495; J3490 ==

== ENCOUNTER → 2023-10-30 13:26 | Outpatient (BNVA) | payer MEDICARE, OTHER, SELFPAY | PROVIDERS: PCP Family Medicine; Visit Provider Anesthesiology Pain Medicine | DX: M47.816 Spondylosis without myelopathy or radiculopathy, lumbar region (principal) | CPT/HCPCS: 64493; 64494; 64495; J3490 ==

== ENCOUNTER → 2023-11-19 09:58 | Outpatient (BNVA) | payer MEDICARE, OTHER, SELFPAY | PROVIDERS: PCP Family Medicine; Visit Provider Anesthesiology Pain Medicine | DX: M47.816 Spondylosis without myelopathy or radiculopathy, lumbar region | CPT/HCPCS: 99214 ==

== ENCOUNTER → 2023-11-28 14:16 | Outpatient (BNVA) | payer MEDICARE, OTHER, SELFPAY | PROVIDERS: PCP Family Medicine; Visit Provider Anesthesiology Pain Medicine | DX: M47.816 Spondylosis without myelopathy or radiculopathy, lumbar region (principal) | CPT/HCPCS: 64635; 64636; J1030 ==

== ENCOUNTER → 2023-12-12 08:43 | Outpatient (BNVA) | payer MEDICARE, OTHER, SELFPAY | PROVIDERS: PCP Family Medicine; Visit Provider Anesthesiology Pain Medicine | DX: M47.816 Spondylosis without myelopathy or radiculopathy, lumbar region | CPT/HCPCS: 99214 ==

== ENCOUNTER → 2023-12-24 08:59 | Outpatient (BNVA) | payer MEDICARE, OTHER, SELFPAY | PROVIDERS: PCP Family Medicine; Visit Provider Anesthesiology Pain Medicine | DX: M79.18 Myalgia, other site (principal); M47.816 Spondylosis without myelopathy or radiculopathy, lumbar region | CPT/HCPCS: 20553; 99214; J1030; J3490 ==

== ENCOUNTER 2024-01-31 06:00 | Outpatient (RCR) | payer MEDICARE, SELFPAY | END 2024-02-16 23:59 | disposition home or self-care (01) | LOC: WPT 06:00 | PROVIDERS: PCP Family Medicine; Visit Provider Anesthesiology Pain Medicine | DX: M47.896 Other spondylosis, lumbar region (principal) | CPT/HCPCS: 97110; 97112; 97161; 97530 ==

== ENCOUNTER 2024-02-17 06:00 | Outpatient (RCR) | payer MEDICARE, OTHER, SELFPAY | END 2024-03-17 23:59 | disposition home or self-care (01) | LOC: WPT 06:00 | PROVIDERS: PCP Family Medicine; Visit Provider Anesthesiology Pain Medicine | DX: M47.816 Spondylosis without myelopathy or radiculopathy, lumbar region (principal) | CPT/HCPCS: 97110 ==

== ENCOUNTER → 2024-02-18 09:26 | Outpatient (BNVA) | payer MEDICARE, OTHER, SELFPAY | PROVIDERS: PCP Family Medicine; Visit Provider Anesthesiology Pain Medicine | DX: M47.816 Spondylosis without myelopathy or radiculopathy, lumbar region (principal); G89.29 Other chronic pain | CPT/HCPCS: 72110; 99214 ==

== ENCOUNTER → 2024-02-27 09:51 | Outpatient (BNVA) | payer MEDICARE, OTHER, SELFPAY | PROVIDERS: PCP Family Medicine; Visit Provider Anesthesiology Pain Medicine | DX: M79.18 Myalgia, other site (principal); M47.816 Spondylosis without myelopathy or radiculopathy, lumbar region; M16.0 Bilateral primary osteoarthritis of hip; W57.XXXA Bitten or stung by nonvenomous insect and other nonvenomous arthropods, initial encounter; M25.551 Pain in right hip; M25.552 Pain in left hip; M54.2 Cervicalgia | CPT/HCPCS: 20553; 73521; 99214 ==

== ENCOUNTER → 2024-03-31 08:49 | Outpatient (BNVA) | payer MEDICARE, OTHER, SELFPAY | PROVIDERS: PCP Family Medicine; Visit Provider Anesthesiology Pain Medicine | DX: M54.2 Cervicalgia; M47.816 Spondylosis without myelopathy or radiculopathy, lumbar region; M16.0 Bilateral primary osteoarthritis of hip | CPT/HCPCS: 99214 ==

== ENCOUNTER → 2024-04-09 13:56 | Outpatient (BNVA) | payer MEDICARE, OTHER, SELFPAY | PROVIDERS: PCP Family Medicine; Visit Provider Anesthesiology Pain Medicine | DX: M16.11 Unilateral primary osteoarthritis, right hip (principal) | CPT/HCPCS: 20610; J1010; J3490 ==

== ENCOUNTER → 2024-04-23 13:06 | Outpatient (BNVA) | payer MEDICARE, OTHER, SELFPAY | PROVIDERS: PCP Family Medicine; Visit Provider Anesthesiology Pain Medicine | DX: M16.12 Unilateral primary osteoarthritis, left hip (principal) | CPT/HCPCS: 20610; 77002; J1010; J3490 ==

== ENCOUNTER → 2024-05-06 08:43 | Outpatient (BNVA) | payer MEDICARE, OTHER, SELFPAY | PROVIDERS: PCP Family Medicine; Visit Provider Anesthesiology Pain Medicine | DX: M54.2 Cervicalgia; M47.816 Spondylosis without myelopathy or radiculopathy, lumbar region; M16.0 Bilateral primary osteoarthritis of hip | CPT/HCPCS: 99214 ==

== ENCOUNTER → 2024-10-29 08:09 | Outpatient (BNVA) | payer MEDICARE, OTHER, SELFPAY | PROVIDERS: PCP Family Medicine; Visit Provider Physician Assistant | DX: S52.121A Displaced fracture of head of right radius, initial encounter for closed fracture (principal); M77.11 Lateral epicondylitis, right elbow; X58.XXXA Exposure to other specified factors, initial encounter | CPT/HCPCS: 20605; 73080; 99203; J3301; J3490 ==

== ENCOUNTER → 2024-12-08 10:04 | Outpatient (BNVA) | payer MEDICARE, OTHER, SELFPAY | PROVIDERS: PCP Family Medicine; Visit Provider Anesthesiology Pain Medicine | DX: M54.2 Cervicalgia; M47.816 Spondylosis without myelopathy or radiculopathy, lumbar region; M16.0 Bilateral primary osteoarthritis of hip | CPT/HCPCS: 99213 ==

== ENCOUNTER → 2025-03-08 09:56 | Outpatient (BNVA) | payer MEDICARE, OTHER, SELFPAY | PROVIDERS: PCP Family Medicine; Visit Provider Anesthesiology Pain Medicine | DX: M54.9 Dorsalgia, unspecified (principal); M54.2 Cervicalgia; M47.816 Spondylosis without myelopathy or radiculopathy, lumbar region; M16.0 Bilateral primary osteoarthritis of hip; Z87.891 Personal history of nicotine dependence | CPT/HCPCS: 99214 ==

== ENCOUNTER → 2025-04-06 09:18 | Outpatient (BNVA) | payer MEDICARE, OTHER, SELFPAY | PROVIDERS: PCP Family Medicine; Visit Provider Physician Assistant | DX: M77.11 Lateral epicondylitis, right elbow (principal) | CPT/HCPCS: 20600; 99213; J3301; J3490; J9999 ==

== ENCOUNTER → 2025-05-03 08:47 | Outpatient (BNVA) | payer MEDICARE, OTHER, SELFPAY | PROVIDERS: PCP Family Medicine; Visit Provider Anesthesiology Pain Medicine | DX: M54.9 Dorsalgia, unspecified (principal); M25.559 Pain in unspecified hip; M54.2 Cervicalgia; M47.816 Spondylosis without myelopathy or radiculopathy, lumbar region; M16.0 Bilateral primary osteoarthritis of hip | CPT/HCPCS: 99213 ==